=== PATIENT | female | born 1990 | race American Indian/Alaskan Native ===

== ENCOUNTER 2020-01-04 01:08 | Emergency (ER) | payer MEDICAID ==
[2020-01-04] MEDS ORDERED: SODIUM CHLORIDE 0.9% 1000 ML 1,000 ML IV ONE (01:28)
[2020-01-04] MEDS ORDERED: NALOXONE 0.4 MG/1 ML INJ IV PRN (01:28)
[2020-01-04] MEDS ORDERED: HALOPERIDOL LACTATE 5 MG/1 ML INJ IM PRN (01:29)
[2020-01-04] MEDS ORDERED: LORazepam 2 MG/ML VIAL IM PRN (01:29)
--- NOTE | 2020-01-04 01:30 | Emergency Department Report ---
ED General Adult HPI - General Chief complaint: Medical Clearance Stated complaint: AMS Time Seen by Provider: 01/04/20 01:16 Source: patient, EMS (Verbal report received from emergency medical services. EMS documentation not available at time of chart dictation ), RN notes reviewed, old records reviewed Mode of arrival: Stretcher Limitations: Altered Mental Status, Other (Patient disorganized and intoxicated) - History of Present Illness Initial comments: The patient is a 29-year-old female. The patient is not known to myself previously. 6 years ago she was admitted to this hospital for an acetaminophen overdose. She is brought to the hospital today by my emergency medical services for suspected overdose. As per verbal report from EMS, patient was found unresponsive after a fall, after suspicion of consuming recreational drugs, possibly Percocet, and alcohol. The patient states that she had some wine yesterday, and possibly a Percocet. She does not recall anything else. EMS verbally states that the patient had agonal breathing in the field, was unresponsive, and required 4 mg of Narcan. In the emergency room, the patient denies physical pain. She denies homicidality and suicidality. She feels a little bit anxious. She is not sure if she took a Percocet. -: This evening Improves with: none Worsens with: none - Related Data Previous Rx's Medication Instructions Recorded Last Taken Type Enoxaparin Sodium [Lovenox] 70 mg SQ QDAY #10 syringe 01/04/20 Unknown Rx Naloxone HCl [Narcan Nasal [place]] 4 mg NS PRN PRN #5 spray 01/04/20 Unknown Rx dilTIAZem [Cardizem] 30 mg PO Q6HR #28 tablet 01/04/20 Unknown Rx levoFLOXacin [Levaquin] 750 mg PO QDAY #7 tablet 01/04/20 Unknown Rx Allergies Allergy/AdvReac Type Severity Reaction Status Date / Time No Known Allergies Allergy Verified 11/10/14 14:40 ED Review of Systems ROS: Stated complaint: AMS Other details as noted in HPI Comment: Unobtainable due to pts medical conditions ED Past Medical Hx - Social History Smoking Status: Current Every Day Smoker - Medications Home Medications: Home Medications Medication Instructions Recorded Confirmed Last Taken Type Enoxaparin Sodium [Lovenox] 70 mg SQ QDAY #10 syringe 01/04/20 Unknown Rx Naloxone HCl [Narcan Nasal [place]] 4 mg NS PRN PRN #5 spray 01/04/20 Unknown Rx dilTIAZem [Cardizem] 30 mg PO Q6HR #28 tablet 01/04/20 Unknown Rx levoFLOXacin [Levaquin] 750 mg PO QDAY #7 tablet 01/04/20 Unknown Rx ED Physical Exam - General Limitations: Other (Patient intoxicated, anxious, and disorganized) General appearance: appears intoxicated, anxious, in distress, other (During the entire history and physical examination, chaperoned, escorted by nurse Vanesa Carlton) - Head Head exam: Present: atraumatic, normocephalic - Eye Eye exam: Present: normal appearance, PERRL, EOMI - ENT ENT exam: Present: normal exam, mucous membranes moist, normal external ear e xam, other (Patient has a cold sore noted on the right lower lip) - Neck Neck exam: Present: normal inspection, full ROM. Absent: tenderness, meningismus - Respiratory Respiratory exam: Present: normal lung sounds bilaterally. Absent: respiratory distress - Cardiovascular Cardiovascular Exam: Present: tachycardia, irregular rhythm, normal heart sounds. Absent: systolic murmur, diastolic murmur, rubs, gallop - GI/Abdominal GI/Abdominal exam: Present: soft. Absent: distended, tenderness, guarding, rebound, rigid, pulsatile mass - Extremities Exam Extremities exam: Present: normal inspection, full ROM, other (2+ pulses noted in the bilateral upper and lower extremities. There is no palpable cord. negative Homans sign. Muscular compartments are soft. The pelvis is stable.). Absent: pedal edema, calf tenderness - Back Exam Back exam: Present: normal inspection. Absent: tenderness, CVA tenderness (R), CVA tenderness (L), paraspinal tenderness, vertebral tenderness - Neurological Exam Neurological exam: Present: alert (The patient is alert to name, month and location. She cannot tell me what she took specifically this evening.), other (There is no facial droop. The tongue is midline. Extraocular movements are intact bilaterally. There is 5 out of 5 strength in bilateral upper and lower extremities. Sensation is intact to light touch bilateral upper and lower extremities. ) - Psychiatric Psychiatric exam: Present: anxious - Skin Skin exam: Present: warm, dry, intact, normal color. Absent: rash ED Course Vital Signs 01/04/20 01/04/20 01/04/20 01:34 01:46 02:00 Temperature 98 F Pulse Rate 160 H 170 H Respiratory 16 16 Rate Blood Pressure 110/81 Blood Pressure 120/78 [Left] O2 Sat by Pulse 98 98 Oximetry 01/04/20 01/04/20 02:33 03:00 Temperature Pulse Rate 160 H 116 H Respiratory 20 Rate Blood Pressure 129/83 Blood Pressure 108/80 [Left] O2 Sat by Pulse 100 Oximetry - Reevaluation(s) Reevaluation #1: 01/04/20 01:51 Differential diagnosis, including but not limited to: Intracranial injury, cervical spine injury, polysubstance overdose, electrolyte derangement, thyroid derangement Assessment and plan: 29-year-old female brought to the hospital by EMS after she either collapsed or fell in the context of alcohol and possible recreational/intentional drug consumption/overdose. She is afebrile with reassuring vital signs with the exception of tachycardia, rhythm appears to be A. fib with RVR. Her physical exam is otherwise unremarkable, she is not overtly homicidal or suicidal. She is anxious and somewhat disorganized, but she is cooperative. She is amenable to diagnostic laboratory testing, and medical intervention at this time. CT scan of the brain and cervical spine ordered. EKG reviewed and appreciated. Screening laboratory studies ordered, diltiazem ordered. We will reassess after her initial data points. Reevaluation #2: 01/04/20 02:39 Patient continues to remain in A. fib with RVR. Received diltiazem 15 mg, then 20 mg, still in A. fib with RVR. Complaining of shortness of breath, although saturating at 97% on room air, with clear lungs. X-ray pending. Laboratory studies reviewed and appreciated, leukocytosis reviewed and appreciated, suspect stress reaction. CT scan brain and cervical spine pending, x-ray the chest pending. Patient will require admission to the medical service for rate control. Assuming no contraindications demonstrated on CT scan brain and cervical spine, which I suspect will be within normal limits, we will load the patient with Lovenox, 1 mg/kg subq Reevaluation #3: 01/04/20 03:11 CT scan of the brain and cervical spine negative for acute disease. Right upper lobe aspiration is suggested on CT scan of the cervical spine, as well as x-ray of the chest. Patient tachycardic anywhere from the 110s to 140s. Diltiazem drip is pending at this time. X-ray of the chest suggest possible upper lobe aspiration. Therefore, patient will be given additional IV fluids, blood cultures and lactic acid will be drawn, Lovenox will be administered, and patient will be covered with antibiotics. The hospital physician is paged to arrange admission. Admitting diagnosis: Systemic inflammatory response syndrome, alcohol intoxication, A. fib with RVR, aspiration Reevaluation #4: 01/04/20 03:24 The patient is now refusing all further intervention. Attempted to explain that she has A. fib with RVR, which puts her at risk for stroke, disability, paralysis, heart attack, loss of quality of life. Strongly recommended admission to the medical service for IV fluids, antibiotics, rate control, and supportive care. She is refusing these interventions. In addition, the patient's mother is at the bedside. The patient's mother states that she is going to assume care for the patient. I reiterated these recommendations to the patient's mother. The patient's mother states that she is going to assume care for her daughter. The patient's mother is alert and oriented x3, clinically sober, and exhibits decision-making capacity. She is free from distracting injury. She is able to articulate the risks of , disability, paralysis, loss of quality of life in her own words. She specifically refused to have the patient medicated/sedated for her own care and own safety. The patient's mother is also refusing all further medical interventions for her daughter at this time. She is refusing to allow me to treat her daughter anymore at this time. This entire conversation is witnessed by nurse Tegan Carlton Patient and daughter are counseled that they may return to the emergency room r ight away if and when she changes her mind. ED Medical Decision Making - Lab Data Result diagrams: 01/04/20 01:54 01/04/20 01:54 Vital Signs 01/04/20 01/04/20 01:34 01:46 Temperature 98 F Pulse Rate 160 H Respiratory 16 16 Rate Blood Pressure 120/78 [Left] O2 Sat by Pulse 98 98 Oximetry - EKG Data -: EKG Interpreted by Me Rate: tachycardia - EKG Data 01/04/20 01:53 This is a tachycardic rhythm, 156 bpm, appears to be A. fib, rapid ventricular response, QTC 474 ms, the EKG is not consistent with ST elevation myocardial infarction. There is no prior available for comparison at this time. - Radiology Data Radiology results: pending, report reviewed, image reviewed Print Report Referring Physician: FRANNY BARAKAT Patient Name: PAVEL BARRERA Date of : 1990 Sex: Female Report Date: 2020-01-04 Report Status: Finalized Findings [address] [address] XRay Report Signed Patient: PAVEL BARRERA MR#: [id number] : 1990 Acct:[id number] Age/Sex: 29 / F ADM Date: 01/04/20 Loc: ED Attending Dr: Ordering Physician: FRANNY BARAKAT MD Date of Service: 01/04/20 Procedure(s): XR chest 1V ap Accession Number(s): [id number] cc: FRANNY BARAKAT MD Fluoro Time In Minutes: CHEST 1 VIEW INDICATION / CLINICAL INFORMATION: Tachycardia, respiratory distress. COMPARISON: None available. FINDINGS: SUPPORT DEVICES: None. HEART / MEDIASTINUM: No significant abnormality. LUNGS / PLEURA: There is minimal patchy right upper lobe consolidation may represent some minimal aspiration. The lungs and pleural spaces otherwise are clear. No pneumothorax. ADDITIONAL FINDINGS: No significant additional findings. IMPRESSION: 1 Minimal right upper lobe density. Follow-up film may be of benefit. Signer Name: Jann Barrios MD Signed: 01/04/2020 2:49 AM Workstation Name: [id number] Transcribed By: JAQUELINE Dictated By: Jann Barrios MD Electronically Authenticated By: Jann Barrios MD Signed Date/Time: 01/04/20248 DD/ Print Report Referring Physician: FRANNY BARAKAT Patient Name: PAVEL BARRERA Date of : 1990 Sex: Female Report Date: 2020-01-04 Report Status: Finalized Findings [address] [address] Cat Scan Report Signed Patient: PAVEL BARRERA MR#: [id number] : 1990 Acct:[id number] Age/Sex: 29 / F ADM Date: 01/04/20 Loc: ED Attending Dr: Ordering Physician: FRANNY BARAKAT MD Date of Service: 01/04/20 Procedure(s): CT cervical spine wo con Accession Number(s): [id number] cc: FRANNY BARAKAT MD CT of the cervical spine INDICATION: Neck pain following fall FINDINGS: The vertebral body heights and disc spaces are maintained. There is no fracture or subluxation. No spurring or facet arthropathy. There is no posterior element fracture or facet lock. No hematoma or soft tissue swelling. The odontoid and spinous processes are intact. No gross disc herniation. The cervical CT confirms slight to moderate consolidation in the right upper lobe which again may represent aspiration. IMPRESSION: Probable right upper lobe aspiration. No cervical spine abnormality. All CT scans at this location are performed using CT dose reduction for ALARA by means of automated exposure control Signer Name: Jann Barrios MD Signed: 01/04/2020 2:53 AM Workstation Name: [id number] Transcribed By: JM Dictated By: Jann Barrios MD Electronically Authenticated By: Jann Barrios MD Signed Date/Time: 01/04/20252 Print Report Referring Physician: FRANNY BARAKAT Patient Name: PAVEL BARRERA Date of : 1990 Sex: Female Report Date: 2020-01-04 Report Status: Finalized Findings [facility] [address] [place] [address] Cat Scan Report Signed Patient: PAVEL BARRERA MR#: [id number] : 1990 Acct:[id number] Age/Sex: 29 / F ADM Date: 01/04/20 Loc: ED Attending Dr: Ordering Physician: FRANNY BARAKAT MD Date of Service: 01/04/20 Procedure(s): CT head/brain wo con Accession Number(s): [id number] cc: FRANNY BARAKAT MD Head CT without intravenous contrast INDICATION: Syncope, closed head trauma COMPARISON: None FINDINGS: The ventricles are normal in size and position. No hemorrhage or extra-axial fluid collection. No edema or mass effect. No focal infarct seen. Portions of the sinuses visualized are clear except for maxillary mucous retention cyst. No skull fracture identified. IMPRESSION: Negative head CT Automated exposure control was utilized to diminish radiation dose Signer Name: Jann Barrios MD Signed: 01/04/2020 2:56 AM Workstation Name: [id number] Transcribed By: JAQUELINE Dictated By: Jann Barrios MD Electronically Authenticated By: Jann Barrios MD Signed Date/Time: 01/04/20255 DD/ 3 Critical Care Time: Yes Critical care time in (mins) excluding proc time.: 60 Critical care attestation.: If time is entered above; I have spent that time in minutes in the direct care of this critically ill patient, excluding procedure time. ED Disposition Clinical Impression: Atrial fibrillation with RVR, Aspiration into respiratory tract, Alcohol intoxication Disposition: LEFT AGAINST MED ADVICE Is pt being admited?: No Does the pt Need Aspirin: No Condition: Undetermined Additional Instructions: As we discussed, patient has left emergency room AGAINST MEDICAL ADVICE. By leaving, the patient has risk , disability, paralysis, loss of quality of life. The patient may return to the emergency room right away if and when she changes her mind. If the patient elects not to return to the emergency room, she should follow-up with a primary care doctor as soon as possible. Recommend that patient avoid consumption of alcohol, and recreational drugs. Recommend the patient not drive or operate motor vehicles, make important decisions, will be responsible for the care of small or under aged children. Use the Narcan medication as needed for overdose/respiratory distress. Please return to the emergency room right away if and when patients or mother changes their mind about having a medical evaluation. Otherwise, take antibiot ics as directed, Narcan as needed, diltiazem as directed, and Lovenox therapy as directed. Prescriptions: dilTIAZem [Cardizem] 30 mg PO Q6HR #28 tablet levoFLOXacin [Levaquin] 750 mg PO QDAY #7 tablet Enoxaparin Sodium [Lovenox] 70 mg SQ QDAY #10 syringe Naloxone HCl [Narcan Nasal [place]] 4 mg NS PRN PRN #5 spray PRN Reason: Overdose Referrals: LUCIANO CULLEN MD [Staff Physician] - 3-5 Days [facility] [Provider Group] - 3-5 Days [facility] [Provider Group] - 3-5 Days Forms: AMA Form
[2020-01-04] MEDS ORDERED: dilTIAZem 50 MG/10 ML INJ IV ONE ×2 (01:45→03:00)
[2020-01-04] MEDS ORDERED: dilTIAZem 50 MG/10 ML INJ ONE (01:57)
[2020-01-04 02:12] LABS: Hematocrit 42.5 % (30.3-42.9); Hemoglobin 13.9 gm/dl (10.1-14.3); Mean Corpuscular HGB Conc 33 % (30-34); Mean Corpuscular Volume 85 fl (79-97); Platelet Count 423 K/mm3 (140-440); Red Blood Count 5.03 M/mm3 (3.65-5.03); Red Cell Distribution Width 14.3 % (13.2-15.2)
[2020-01-04 02:21] LABS: Color,Urine Yellow (Yellow)
[2020-01-04 02:22] LABS: Bilirubin,Urine Negative (Negative)
[2020-01-04 02:24] LABS: Urobilinogen,Urine < 2.0 mg/dL (<2.0)
[2020-01-04 02:24] LABS: INR 0.97 (0.87-1.13)
[2020-01-04] MEDS ORDERED: dilTIAZem 25 MG/5 ML INJ IV ONE (02:24)
[2020-01-04 02:25] LABS: Blood,Urine Negative (Negative)
[2020-01-04 02:25] LABS: Partial Thromboplastin Time 27.5 Sec. (24.2-36.6)
[2020-01-04 02:26] LABS: Amphetamine Screen,Urine PRESUMPTIVE NEGATIVE; Benzodiazepines Screen,Urine PRESUMPTIVE NEGATIVE; Cannabinoid Screen,Urine PRESUMPTIVE NEGATIVE; Cocaine Screen,Urine PRESUMPTIVE NEGATIVE; Methadone Screen,Urine PRESUMPTIVE NEGATIVE; Opiate Screen,Urine PRESUMPTIVE NEGATIVE
[2020-01-04 02:30] LABS: Alanine Aminotransferase 23 units/L (7-56); Albumin 4.9 g/dL (3.9-5); BUN/Creatinine Ratio 11; Blood Urea Nitrogen 9 mg/dL (7-17); Calcium 8.7 mg/dL (8.4-10.2); Hemolysis Index 3
[2020-01-04 02:39] LABS: RBC,Urine < 1.0 /HPF (0.0-6.0)
[2020-01-04] MEDS ORDERED: SODIUM CHLORIDE 0.9% 1000 ML 2,000 ML IV ONE (02:53)
--- NOTE | 2020-01-04 02:53 | XRay Report ---
CHEST 1 VIEW INDICATION / CLINICAL INFORMATION: Tachycardia, respiratory distress. COMPARISON: None available. FINDINGS: SUPPORT DEVICES: None. HEART / MEDIASTINUM: No significant abnormality. LUNGS / PLEURA: There is minimal patchy right upper lobe consolidation may represent some minimal asp iration. The lungs and pleural spaces otherwise are clear. No pneumothorax. ADDITIONAL FINDINGS: No significant additional findings. IMPRESSION: 1 Minimal right upper lobe density. Follow-up film may be of benefit. Signer Name: Jann Barrios MD Signed: 01/04/2020 2:49 AM Workstation Name: [id number]
--- NOTE | 2020-01-04 02:58 | Cat Scan Report ---
CT of the cervical spine INDICATION: Neck pain following fall FINDINGS: The vertebral body heights and disc spaces are maintained. There is no fracture or subluxat ion. No spurring or facet arthropathy. There is no posterior element fracture or facet lock. No hemat herbert or soft tissue swelling. The odontoid and spinous processes are intact. No gross disc herniation. The cervical CT confirms slight to moderate consolidation in the right upper lobe which again may re present aspiration. IMPRESSION: Probable right upper lobe aspiration. No cervical spine abnormality. All CT scans at this location are performed using CT dose reduction for ALARA by means of automated e xposure control Signer Name: Jann Barrios MD Signed: 01/04/2020 2:53 AM Workstation Name: [id number]
[2020-01-04] MEDS ORDERED: dilTIAZem/D5W 100 MG/100 ML BAG IV SCH (03:00)
--- NOTE | 2020-01-04 03:01 | Cat Scan Report ---
Head CT without intravenous contrast INDICATION: Syncope, closed head trauma COMPARISON: None FINDINGS: The ventricles are normal in size and position. No hemorrhage or extra-axial fluid collecti on. No edema or mass effect. No focal infarct seen. Portions of the sinuses visualized are clear exce pt for maxillary mucous retention cyst. No skull fracture identified. IMPRESSION: Negative head CT Automated exposure control was utilized to diminish radiation dose Signer Name: Jann Barrios MD Signed: 01/04/2020 2:56 AM Workstation Name: [id number]
[2020-01-04] MEDS ORDERED: ENOXAPARIN 100 MG/1 ML INJ SUB-Q STA (03:11)
[2020-01-04 04:14] VITALS: BP 108/80
== END 2020-01-04 03:45 | disposition left against medical advice (07) ==
LOC: ED 01:08
DX: T17.900A Unspecified foreign body in respiratory tract, part unspecified causing asphyxiation, initial encounter (principal); I48.20 Chronic atrial fibrillation, unspecified; F10.929 Alcohol use, unspecified with intoxication, unspecified; F17.200 Nicotine dependence, unspecified, uncomplicated; Z79.899 Other long term (current) drug therapy
CPT/HCPCS: 36415; 70450; 71045; 72125; 80053; 80307; 81001; 82550; 83735; 84443; 84702; 85027; 85610; 85730; 93005; 93010; 96374; 96376; 99285; J7030; 80320; G0480; J1956; J2310